=== PATIENT | male | born 1990 | race Caucasian/White ===

== ENCOUNTER 2016-08-08 11:20 | Emergency (ER) | payer SELFPAY ==
[~2016-08-08] VITALS: Ht 177.8 cm; Wt 115.1 kg
[2016-08-08] MEDS ORDERED: KEFLEX500 MG PO (13:01)
[2016-08-08] MEDS ORDERED: NORCO 5/3251 TABLET PO (13:46)
[2016-08-08 14:11] VITALS: BP 141/92
== END 2016-08-08 14:12 | disposition home or self-care (01) ==
LOC: EME 11:20
DX: S71.112A Laceration without foreign body, left thigh, initial encounter (principal); W29.8XXA Contact with other powered hand tools and household machinery, initial encounter; Z23 Encounter for immunization

== ENCOUNTER 2016-08-22 13:40 | Emergency (ER) | payer SELFPAY ==
[~2016-08-22] VITALS: Ht 177.8 cm; Wt 117.3 kg
[~2016-08-22 13:40] MED LIST: KEFLEX500 MG PO; NORCO 5/3251 TABLET PO
[2016-08-22 14:17] VITALS: BP 143/96
== END 2016-08-22 14:39 | disposition home or self-care (01) ==
LOC: EME 13:40
DX: S71.112D Laceration without foreign body, left thigh, subsequent encounter (principal)
CPT/HCPCS: 99281; 99283